=== PATIENT | female | born 1940 | race Caucasian/White ===

== ENCOUNTER 2018-03-20 08:34 | Inpatient (IN) | payer MEDICARE, MEDICAID ==
[~2018-03-20] VITALS: Ht 165.1 cm; Wt 50.3 kg
[2018-03-20 09:07] LABS: BASOPHILS # (AUTO) 0.1 /CMM (0.0-0.2); BASOPHILS % (AUTO) 0.7 % (0.0-2.0); EOSINOPHILS % (AUTO) 0.5 % (0.0-6.0); HEMATOCRIT 32 % (33-45); HEMOGLOBIN 10.3 g/dL (11.5-14.8); LYMPHOCYTES # (AUTO) 1.2 /CMM (0.8-4.8); LYMPHOCYTES % (AUTO) 11.7 % (20.0-44.0); MEAN CORPUSCULAR HGB CONC 32 g/dl (31.0-36.0); MEAN CORPUSCULAR VOLUME 79 fL (82-100); MONOCYTES # (AUTO) 0.4 /CMM (0.1-1.30); NEUTROPHILS # (AUTO) 8.7 /CMM (1.8-8.9); NEUTROPHILS % (AUTO) 83.1 % (43.0-81.0); PLATELET COUNT (AUTO) 478 /CMM (150-450); RDW COEFFICIENT OF VARIATION 18.4 (11.5-15.0); RED BLOOD CELL COUNT(AUTO) 4.07 MIL/uL (4.0-5.2); WHITE BLOOD COUNT (AUTO) 10.5 K/uL (4.3-11.0)
[2018-03-20] MEDS ORDERED: SUVO10TA PO ×2 (09:19→09:36)
[2018-03-20] MEDS ORDERED: METO50TA16 PO ×2 (09:19→09:36)
[2018-03-20] MEDS ORDERED: VORT10TA PO ×2 (09:19→09:36)
[2018-03-20] MEDS ORDERED: CLOP75TA15 PO ×2 (09:19→09:36)
[2018-03-20] MEDS ORDERED: LINA145C PO ×2 (09:19→09:36)
[2018-03-20 09:26] LABS: INR 1.02 (0.87-1.13)
[2018-03-20 09:28] LABS: CALCIUM, SERUM 8.4 mg/dL (8.5-10.1); CARBON DIOXIDE 25 mmol/L (21-32); CHLORIDE 101 mmol/L (98-107); CREATININE 0.9 mg/dL (0.6-1.3); GLUCOSE 96 mg/dL (74-106); POTASSIUM 3.1 mmol/L (3.5-5.1); SODIUM SERUM 139 mmol/L (136-145); UREA NITROGEN, BLOOD 20 mg/dL (7-18)
[2018-03-20] MEDS ORDERED: LATA2.5D7 EACHEYE (09:32)
[2018-03-20 09:34] LABS: ACETAMINOPHEN 0 ug/ml (10-30); ALANINE AMINOTRANSFERASE 9 U/L (12-78); ALBUMIN 2.1 g/dL (3.4-5.0); ALCOHOL, BLOOD < 3 mg/dL (0-0); ALKALINE PHOSPHATASE 77 U/L (46-116); ASPARTATE AMINOTRANSFERASE 16 U/L (15-37); BILIRUBIN,DIRECT 0.1 mg/dL (0.0-0.2); BILIRUBIN,TOTAL 0.4 mg/dL (0.2-1.0); SALICYLATE 1.5 mg/dL (2.8-20.0); TOTAL PROTEIN, SERUM 6.8 g/dL (6.4-8.2)
[2018-03-20 09:36] LABS: TROPONIN I < 0.017 ng/mL (0.00-0.056)
[2018-03-20] MEDS ORDERED: HALOPERIDOL LACTATE INJ 5 MG/ML VIAL IV ONE (10:00)
[2018-03-20] MEDS ORDERED: METOPROLOL TARTRATE 25 MG TABLET PO ONE (10:00)
[2018-03-20] MEDS ORDERED: METOPROLOL TARTRATE 25 MG TABLET ONE (10:02)
[2018-03-20] MEDS ORDERED: HALOPERIDOL LACTATE INJ 5 MG/ML VIAL ONE (10:15)
[2018-03-20] MEDS ORDERED: POTASSIUM CHLORIDE 20 MEQ POWDER PACKET ONE (10:25)
[2018-03-20] MEDS ORDERED: PIPERACILLIN /TAZOBACTAM 3.375 G in IV D5W 50 ML IV ONE (10:30)
[2018-03-20] MEDS ORDERED: LEVOFLOXACIN 750 MG /D5W 150ML 150 ML IV ONE (10:30)
[2018-03-20] MEDS ORDERED: POTASSIUM CHLORIDE 20 MEQ TAB.PRT.SR PO ONE (10:30)
[2018-03-20] MEDS ORDERED: CEFTRIAXONE 1GM BAG (ER ONLY) 1 GM/50 ML PIGGYBACK IV ONE (10:30)
[2018-03-20] MEDS ORDERED: AZITHROMYCIN 250 MG TABLET PO ONE (10:30)
[2018-03-20] MEDS ORDERED: IV NS 0.9% 1,000 ML IV PRN (11:32)
[2018-03-20] MEDS ORDERED: ONDANSETRON HCL/PF 4 MG/2 ML VIAL IVP PRN (12:00)
[2018-03-20] MEDS ORDERED: MAG HYDROX/AL HYDROX/SIMETH 30 ML UDC PO PRN (12:00)
[2018-03-20] MEDS ORDERED: Z GUARD REMEDY 2 OZ OINT TP PRN (12:00)
[2018-03-20] MEDS ORDERED: HYDROCODONE/APAP 5/325MG 1 EACH TABLET PO PRN (12:00)
[2018-03-20] MEDS ORDERED: ACETAMINOPHEN 325 MG TABLET PO PRN (12:00)
[2018-03-20] MEDS ORDERED: MAGNESIUM HYDROXIDE 30 ML UDC PO PRN (12:00)
[2018-03-20] MEDS ORDERED: DILTIAZEM HCL 50 MG IV IV ONE (12:00)
[2018-03-20] MEDS ORDERED: FEE PK DOSING 1 MIN EA MC ONE (12:34)
[2018-03-20 12:51] LABS: APPEARANCE,URINE SL CLOUDY (CLEAR); BILIRUBIN,URINE 1+ (NEGATIVE); BLOOD, URINE TRACE Ery/uL (NEGATIVE); COLOR,URINE YELLOW (YELLOW); KETONES,URINE 2+ (NEGATIVE); LEUKOCYTE ESTERASE ,URINE NEGATIVE (NEGATIVE); NITRITE, URINE NEGATIVE (NEGATIVE); PROTEIN,URINE TRACE mg/dl (NEGATIVE); UGLUCOSE NEGATIVE (NEGATIVE)
[2018-03-20 12:59] LABS: BACTERIA,URINE Few /HPF (None Seen); SQUAMOUS EPITHELIAL CELL,UR Few /HPF (None Seen); WBC,URINE NONE SEEN /HPF (0-3)
[2018-03-20 13:11] LABS: TROPONIN I < 0.017 ng/mL (0.00-0.056)
[2018-03-20 13:50] VITALS: BP 157/63
[2018-03-20] MEDS: DIGOXIN INJ 0.5 MG/2 ML AMPUL IV SCH ×2 (13:58→18:24)
[2018-03-20] MEDS: ENOXAPARIN SODIUM 40 MG/0.4 ML DISP.SYRIN SQ SCH (14:07)
[2018-03-20] MEDS: VANCOMYCIN 1 GM in IV D5W 250 ML IV SCH (14:08)
[2018-03-20 16:00] VITALS: BP 154/73
[2018-03-20] MEDS: IV NS 0.9% 1,000 ML IV PRN (17:07)
[2018-03-20 17:38] LABS: MAGNESIUM 1.9 mg/dL (1.8-2.4); PHOSPHORUS 3.2 mg/dL (2.5-4.9)
[2018-03-20] MEDS: METOPROLOL TARTRATE 50 MG TABLET PO SCH (17:39)
[2018-03-20] MEDS: PIPERACILLIN /TAZOBACTAM 3.375 G in IV D5W 50 ML IV SCH ×2 (17:41→23:39)
[2018-03-20 17:51] LABS: THYROID STIMULATING HORMONE 1.156 uIU/mL (0.358-3.74)
[2018-03-20 20:00] VITALS: BP 150/67
[2018-03-20] MEDS: LATANOPROST EYE DROP 0.005% 2.5 ML BOTTLE EACHEYE SCH (21:10)
[2018-03-21] VITALS: BP 139/66
[2018-03-21] MEDS: DIGOXIN INJ 0.5 MG/2 ML AMPUL IV SCH (00:41)
[2018-03-21] MEDS: IV NS 0.9% 1,000 ML IV PRN ×2 (00:49→17:05)
[2018-03-21 04:00] VITALS: BP 132/44
[2018-03-21] MEDS: PIPERACILLIN /TAZOBACTAM 3.375 G in IV D5W 50 ML IV SCH ×2 (05:34→11:42)
[2018-03-21] MEDS: VANCOMYCIN 1 GM in IV D5W 250 ML IV SCH (06:36)
[2018-03-21 06:46] LABS: APPEARANCE,URINE CLEAR (CLEAR); BILIRUBIN,URINE NEGATIVE (NEGATIVE); BLOOD, URINE 2+ Ery/uL (NEGATIVE); COLOR,URINE YELLOW (YELLOW); KETONES,URINE TRACE (NEGATIVE); LEUKOCYTE ESTERASE ,URINE NEGATIVE (NEGATIVE); NITRITE, URINE NEGATIVE (NEGATIVE); PH,URINE 6.5 (5.0-8.0); PROTEIN,URINE NEGATIVE (NEGATIVE); UGLUCOSE NEGATIVE (NEGATIVE); UROBILINOGEN,URINE 0.2 EU/dL (0.2)
[2018-03-21 07:35] LABS: DIGOXIN 2.06 ng/mL (0.90-2.00)
[2018-03-21 07:40] LABS: EOSINOPHILS % (AUTO) 0.5 % (0.0-6.0); HEMATOCRIT 31 % (33-45); HEMOGLOBIN 9.8 g/dL (11.5-14.8); LYMPHOCYTES # (AUTO) 1.2 /CMM (0.8-4.8); LYMPHOCYTES % (AUTO) 11.1 % (20.0-44.0); MEAN CORPUSCULAR HGB CONC 32 g/dl (31.0-36.0); MEAN CORPUSCULAR VOLUME 79 fL (82-100); MONOCYTES # (AUTO) 0.2 /CMM (0.1-1.30); MONOCYTES % (AUTO) 1.8 % (2.0-12.0); NEUTROPHILS # (AUTO) 9.1 /CMM (1.8-8.9); NEUTROPHILS % (AUTO) 86.6 % (43.0-81.0); PLATELET COUNT (AUTO) 497 /CMM (150-450); RDW COEFFICIENT OF VARIATION 19.2 (11.5-15.0); RED BLOOD CELL COUNT(AUTO) 3.91 MIL/uL (4.0-5.2); TROPONIN I < 0.017 ng/mL (0.00-0.056); WHITE BLOOD COUNT (AUTO) 10.5 K/uL (4.3-11.0)
[2018-03-21 07:43] LABS: ALANINE AMINOTRANSFERASE 7 U/L (12-78); ALBUMIN 1.9 g/dL (3.4-5.0); ALKALINE PHOSPHATASE 71 U/L (46-116); ASPARTATE AMINOTRANSFERASE 16 U/L (15-37); BILIRUBIN,TOTAL 0.3 mg/dL (0.2-1.0); CARBON DIOXIDE 28 mmol/L (21-32); CHLORIDE 105 mmol/L (98-107); CREATININE 0.8 mg/dL (0.6-1.3); GLUCOSE 85 mg/dL (74-106); MAGNESIUM 1.8 mg/dL (1.8-2.4); PHOSPHORUS 3.1 mg/dL (2.5-4.9); POTASSIUM 3.4 mmol/L (3.5-5.1); SODIUM SERUM 141 mmol/L (136-145); TOTAL PROTEIN, SERUM 6.3 g/dL (6.4-8.2); UREA NITROGEN, BLOOD 15 mg/dL (7-18)
[2018-03-21 07:47] LABS: CHOLESTEROL 194 mg/dL (<200); HDL CHOLESTEROL 26 mg/dL (40-60); LDL 152 mg/dL (0-99); TRIGLYCERIDES 90 mg/dL (30-150)
[2018-03-21 08:00] VITALS: BP 114/45
[2018-03-21 08:14] LABS: BACTERIA,URINE None seen /HPF (None Seen); SQUAMOUS EPITHELIAL CELL,UR Few /HPF (None Seen); WBC,URINE 0-2 /HPF (0-3)
[2018-03-21] MEDS: CLOPIDOGREL BISULFATE 75 MG TABLET PO SCH (08:48)
[2018-03-21] MEDS: METOPROLOL TARTRATE 50 MG TABLET PO SCH ×2 (08:48→16:38)
[2018-03-21] MEDS: ENOXAPARIN SODIUM 40 MG/0.4 ML DISP.SYRIN SQ SCH (08:50)
[2018-03-21] MEDS ORDERED: Linaclotide (Linzess) 145 MCG) PO SCH (09:00)
[2018-03-21 09:01] LABS: BAND % (MANUAL) 2 % (0.0-5.0); LYMPHOCYTES % (MANUAL) 14 % (16-48); MONOCYTES % (MANUAL) 2 % (0-11.0); NEUTROPHILS % (MANUAL) 82 (42-76)
[2018-03-21] MEDS: POTASSIUM CHLORIDE 20 MEQ TAB.PRT.SR PO SCH ×2 (10:08→11:26)
[2018-03-21 16:00] VITALS: BP 102/42
[2018-03-21] MEDS: LACTOBACILLUS RHAMNOSUS GG 1 EACH CAP.SPRINK PO SCH (16:40)
[2018-03-21 20:00] VITALS: BP 130/64
[2018-03-21] MEDS: LATANOPROST EYE DROP 0.005% 2.5 ML BOTTLE EACHEYE SCH (22:00)
[2018-03-22] MEDS: IV NS 0.9% 1,000 ML IV PRN (02:44)
[2018-03-22 04:00] VITALS: BP 128/53
[2018-03-22 07:10] LABS: BASOPHILS % (AUTO) 0.3 % (0.0-2.0); EOSINOPHILS % (AUTO) 0.3 % (0.0-6.0); HEMATOCRIT 32 % (33-45); HEMOGLOBIN 10.2 g/dL (11.5-14.8); LYMPHOCYTES # (AUTO) 1.9 /CMM (0.8-4.8); LYMPHOCYTES % (AUTO) 14.4 % (20.0-44.0); MEAN CORPUSCULAR HGB CONC 32 g/dl (31.0-36.0); MEAN CORPUSCULAR VOLUME 80 fL (82-100); MONOCYTES # (AUTO) 0.6 /CMM (0.1-1.30); NEUTROPHILS # (AUTO) 10.3 /CMM (1.8-8.9); PLATELET COUNT (AUTO) 505 /CMM (150-450); RDW COEFFICIENT OF VARIATION 19.1 (11.5-15.0); RED BLOOD CELL COUNT(AUTO) 4.06 MIL/uL (4.0-5.2); WHITE BLOOD COUNT (AUTO) 12.9 K/uL (4.3-11.0)
[2018-03-22 07:22] LABS: CALCIUM, SERUM 8.6 mg/dL (8.5-10.1); CARBON DIOXIDE 25 mmol/L (21-32); CHLORIDE 106 mmol/L (98-107); CREATININE 0.8 mg/dL (0.6-1.3); GLUCOSE 133 mg/dL (74-106); SODIUM SERUM 140 mmol/L (136-145); UREA NITROGEN, BLOOD 10 mg/dL (7-18)
[2018-03-22] MEDS: LACTOBACILLUS RHAMNOSUS GG 1 EACH CAP.SPRINK PO SCH ×2 (08:02→16:25)
[2018-03-22] MEDS: CLOPIDOGREL BISULFATE 75 MG TABLET PO SCH (08:02)
[2018-03-22] MEDS: METOPROLOL TARTRATE 50 MG TABLET PO SCH ×2 (08:03→16:26)
[2018-03-22] MEDS: ENOXAPARIN SODIUM 40 MG/0.4 ML DISP.SYRIN SQ SCH (08:04)
[2018-03-22] MEDS ORDERED: LEVOFLOXACIN 750 MG /D5W 150ML 750 MG in PREMIX 1 EA IV SCH (10:00)
[2018-03-22 12:00] VITALS: BP 132/76
[2018-03-22] MEDS: POTASSIUM CHLORIDE 20 MEQ TAB.PRT.SR PO SCH ×3 (12:03→13:14)
[2018-03-22 16:00] VITALS: BP 147/68
[2018-03-22 20:00] VITALS: BP 151/76
[2018-03-22] MEDS: LATANOPROST EYE DROP 0.005% 2.5 ML BOTTLE EACHEYE SCH (21:17)
[2018-03-23 04:00] VITALS: BP_SYST 14; BP_SYST 142; BP_DIAS 64
[2018-03-23 07:28] LABS: CARBON DIOXIDE 26 mmol/L (21-32); CHLORIDE 109 mmol/L (98-107); CREATININE 0.6 mg/dL (0.6-1.3); GLUCOSE 87 mg/dL (74-106); POTASSIUM 3.5 mmol/L (3.5-5.1); SODIUM SERUM 143 mmol/L (136-145); UREA NITROGEN, BLOOD 9 mg/dL (7-18)
[2018-03-23 08:00] VITALS: BP 145/69
[2018-03-23] MEDS: METOPROLOL TARTRATE 50 MG TABLET PO SCH ×2 (08:39→16:47)
[2018-03-23] MEDS: LACTOBACILLUS RHAMNOSUS GG 1 EACH CAP.SPRINK PO SCH ×2 (08:39→16:48)
[2018-03-23] MEDS: CLOPIDOGREL BISULFATE 75 MG TABLET PO SCH (08:39)
[2018-03-23] MEDS: ENOXAPARIN SODIUM 40 MG/0.4 ML DISP.SYRIN SQ SCH (08:40)
[2018-03-23 16:00] VITALS: BP 154/74
[2018-03-23 20:00] VITALS: BP 124/72
[2018-03-23] MEDS: LATANOPROST EYE DROP 0.005% 2.5 ML BOTTLE EACHEYE SCH (21:46)
[2018-03-24 06:49] LABS: BASOPHILS % (AUTO) 0.3 % (0.0-2.0); EOSINOPHILS % (AUTO) 0.8 % (0.0-6.0); HEMATOCRIT 29 % (33-45); HEMOGLOBIN 9.3 g/dL (11.5-14.8); LYMPHOCYTES # (AUTO) 1.6 /CMM (0.8-4.8); LYMPHOCYTES % (AUTO) 12.1 % (20.0-44.0); MEAN CORPUSCULAR HGB CONC 32 g/dl (31.0-36.0); MEAN CORPUSCULAR VOLUME 79 fL (82-100); MONOCYTES # (AUTO) 0.6 /CMM (0.1-1.30); MONOCYTES % (AUTO) 4.4 % (2.0-12.0); NEUTROPHILS # (AUTO) 11.1 /CMM (1.8-8.9); NEUTROPHILS % (AUTO) 82.4 % (43.0-81.0); PLATELET COUNT (AUTO) 456 /CMM (150-450); RDW COEFFICIENT OF VARIATION 19.2 (11.5-15.0); RED BLOOD CELL COUNT(AUTO) 3.68 MIL/uL (4.0-5.2); WHITE BLOOD COUNT (AUTO) 13.5 K/uL (4.3-11.0)
[2018-03-24 07:07] LABS: CALCIUM, SERUM 8.3 mg/dL (8.5-10.1); CARBON DIOXIDE 26 mmol/L (21-32); CHLORIDE 105 mmol/L (98-107); CREATININE 0.6 mg/dL (0.6-1.3); GLUCOSE 74 mg/dL (74-106); POTASSIUM 3.5 mmol/L (3.5-5.1); SODIUM SERUM 140 mmol/L (136-145); UREA NITROGEN, BLOOD 11 mg/dL (7-18)
[2018-03-24 08:00] VITALS: BP 147/76
[2018-03-24 08:08] LABS: IMMUNOGLOBULIN A, SERUM 542 mg/dL (64-422); IMMUNOGLOBULIN G, SERUM 1074 mg/dL (700-1600); IMMUNOGLOBULIN M, SERUM 48 mg/dL (26-217)
[2018-03-24] MEDS: LACTOBACILLUS RHAMNOSUS GG 1 EACH CAP.SPRINK PO SCH ×2 (08:38→17:21)
[2018-03-24] MEDS: CLOPIDOGREL BISULFATE 75 MG TABLET PO SCH (08:39)
[2018-03-24] MEDS: METOPROLOL TARTRATE 50 MG TABLET PO SCH ×2 (08:39→17:21)
[2018-03-24] MEDS: ENOXAPARIN SODIUM 40 MG/0.4 ML DISP.SYRIN SQ SCH (08:41)
[2018-03-24 10:18] LABS: *SPE A/G RATIO 0.8 (0.7-1.7); *SPE ALBUMIN 2.3 g/dL (2.9-4.4); *SPE ALPHA-1-GLOBULIN 0.3 g/dL (0.0-0.4); *SPE ALPHA-2-GLOBULIN 0.7 g/dL (0.4-1.0); *SPE M-SPIKE Not Observed g/dL (Not Observed)
[2018-03-24 16:00] VITALS: BP 171/75
[2018-03-24 20:00] VITALS: BP 154/92
[2018-03-24] MEDS: LATANOPROST EYE DROP 0.005% 2.5 ML BOTTLE EACHEYE SCH (22:13)
[2018-03-25 05:00] VITALS: BP 150/65
[2018-03-25 06:53] LABS: CALCIUM, SERUM 8.1 mg/dL (8.5-10.1); CARBON DIOXIDE 26 mmol/L (21-32); CHLORIDE 101 mmol/L (98-107); CREATININE 0.7 mg/dL (0.6-1.3); GLUCOSE 72 mg/dL (74-106); POTASSIUM 3.3 mmol/L (3.5-5.1); SODIUM SERUM 139 mmol/L (136-145); UREA NITROGEN, BLOOD 10 mg/dL (7-18)
[2018-03-25 08:00] VITALS: BP 144/85
[2018-03-25] MEDS: LACTOBACILLUS RHAMNOSUS GG 1 EACH CAP.SPRINK PO SCH ×2 (08:17→16:12)
[2018-03-25] MEDS: METOPROLOL TARTRATE 50 MG TABLET PO SCH ×2 (08:18→16:14)
[2018-03-25] MEDS: CLOPIDOGREL BISULFATE 75 MG TABLET PO SCH (08:18)
[2018-03-25] MEDS: ENOXAPARIN SODIUM 40 MG/0.4 ML DISP.SYRIN SQ SCH (08:19)
[2018-03-25] MEDS ORDERED: POTASSIUM CHLORIDE 20 MEQ TAB.PRT.SR PO SCH (11:00)
[2018-03-25 12:00] VITALS: BP 127/54
[2018-03-25] MEDS: ENSURE ENLIVE 237 ML LIQUID (VANILLA) PO SCH ×2 (13:46→17:52)
[2018-03-25 16:00] VITALS: BP 98/56
[2018-03-25] MEDS ORDERED: QUETIAPINE FUMARATE 25 MG TABLET PO PRN (19:00)
[2018-03-25 20:00] VITALS: BP 132/62
[2018-03-25] MEDS: MIRTAZAPINE 15 MG TABLET PO SCH (21:36)
[2018-03-25] MEDS: LATANOPROST EYE DROP 0.005% 2.5 ML BOTTLE EACHEYE SCH (21:36)
[2018-03-26 04:00] VITALS: BP 130/62
[2018-03-26 07:29] LABS: CALCIUM, SERUM 8.1 mg/dL (8.5-10.1); CARBON DIOXIDE 26 mmol/L (21-32); CHLORIDE 102 mmol/L (98-107); CREATININE 0.7 mg/dL (0.6-1.3); GLUCOSE 87 mg/dL (74-106); POTASSIUM 3.1 mmol/L (3.5-5.1); SODIUM SERUM 138 mmol/L (136-145); UREA NITROGEN, BLOOD 16 mg/dL (7-18)
[2018-03-26 08:00] VITALS: BP 140/63
[2018-03-26] MEDS: ENSURE ENLIVE 237 ML LIQUID (VANILLA) PO SCH ×3 (08:00→17:00)
[2018-03-26] MEDS: ENOXAPARIN SODIUM 40 MG/0.4 ML DISP.SYRIN SQ SCH (08:57)
[2018-03-26] MEDS: LACTOBACILLUS RHAMNOSUS GG 1 EACH CAP.SPRINK PO SCH ×2 (08:57→16:57)
[2018-03-26] MEDS: CLOPIDOGREL BISULFATE 75 MG TABLET PO SCH (08:57)
[2018-03-26] MEDS: METOPROLOL TARTRATE 50 MG TABLET PO SCH ×2 (08:57→16:41)
[2018-03-26 12:00] VITALS: BP 140/63
[2018-03-26] MEDS: POTASSIUM CHLORIDE 20 MEQ TAB.PRT.SR PO SCH ×2 (12:00→12:30)
[2018-03-26 16:00] VITALS: BP 117/52
[2018-03-26] MEDS ORDERED: POTASSIUM CHLORIDE 20 MEQ TAB.PRT.SR PO SCH (16:00)
[2018-03-26 20:00] VITALS: BP 126/64
[2018-03-26] MEDS: MIRTAZAPINE 15 MG TABLET PO SCH (21:10)
[2018-03-26] MEDS: LATANOPROST EYE DROP 0.005% 2.5 ML BOTTLE EACHEYE SCH (21:10)
[2018-03-27 04:00] VITALS: BP 121/68
[2018-03-27 06:31] LABS: CALCIUM, SERUM 8.4 mg/dL (8.5-10.1); CARBON DIOXIDE 29 mmol/L (21-32); CHLORIDE 104 mmol/L (98-107); CREATININE 0.7 mg/dL (0.6-1.3); GLUCOSE 99 mg/dL (74-106); POTASSIUM 3.1 mmol/L (3.5-5.1); SODIUM SERUM 141 mmol/L (136-145); UREA NITROGEN, BLOOD 17 mg/dL (7-18)
[2018-03-27 08:00] VITALS: BP 121/57
[2018-03-27] MEDS: ENSURE ENLIVE 237 ML LIQUID (VANILLA) PO SCH ×3 (08:00→17:00)
[2018-03-27] MEDS: ENSURE ENLIVE CHOC 237 ML CAN PO SCH ×3 (08:00→17:00)
[2018-03-27] MEDS: LACTOBACILLUS RHAMNOSUS GG 1 EACH CAP.SPRINK PO SCH ×3 (09:00→18:02)
[2018-03-27] MEDS: CLOPIDOGREL BISULFATE 75 MG TABLET PO SCH (09:00)
[2018-03-27] MEDS: ENOXAPARIN SODIUM 40 MG/0.4 ML DISP.SYRIN SQ SCH (09:00)
[2018-03-27] MEDS: METOPROLOL TARTRATE 50 MG TABLET PO SCH ×3 (09:00→18:02)
[2018-03-27] MEDS ORDERED: POTASSIUM CHLORIDE 20 MEQ TAB.PRT.SR PO SCH (12:00)
[2018-03-27 16:00] VITALS: BP 122/61
[2018-03-27 20:00] VITALS: BP 141/66
[2018-03-27] MEDS: MIRTAZAPINE 15 MG TABLET PO SCH (21:54)
[2018-03-27] MEDS: LATANOPROST EYE DROP 0.005% 2.5 ML BOTTLE EACHEYE SCH (21:54)
[2018-03-28 07:41] LABS: CALCIUM, SERUM 8.4 mg/dL (8.5-10.1); CARBON DIOXIDE 27 mmol/L (21-32); CHLORIDE 105 mmol/L (98-107); CREATININE 0.6 mg/dL (0.6-1.3); GLUCOSE 87 mg/dL (74-106); POTASSIUM 3.6 mmol/L (3.5-5.1); SODIUM SERUM 142 mmol/L (136-145); UREA NITROGEN, BLOOD 18 mg/dL (7-18)
[2018-03-28 08:00] VITALS: BP 143/65
[2018-03-28] MEDS: ENSURE ENLIVE CHOC 237 ML CAN PO SCH ×3 (08:00→17:00)
[2018-03-28] MEDS: ENSURE ENLIVE 237 ML LIQUID (VANILLA) PO SCH ×3 (08:00→17:00)
[2018-03-28] MEDS: LACTOBACILLUS RHAMNOSUS GG 1 EACH CAP.SPRINK PO SCH ×2 (09:00→18:13)
[2018-03-28] MEDS: CLOPIDOGREL BISULFATE 75 MG TABLET PO SCH ×2 (09:00→13:02)
[2018-03-28] MEDS: ENOXAPARIN SODIUM 40 MG/0.4 ML DISP.SYRIN SQ SCH (09:00)
[2018-03-28] MEDS: METOPROLOL TARTRATE 50 MG TABLET PO SCH ×3 (09:00→18:14)
[2018-03-28 16:00] VITALS: BP 140/65
[2018-03-28 20:00] VITALS: BP 111/87
[2018-03-28] MEDS: LATANOPROST EYE DROP 0.005% 2.5 ML BOTTLE EACHEYE SCH (21:59)
[2018-03-28] MEDS: MIRTAZAPINE 15 MG TABLET PO SCH (22:00)
[2018-03-29 04:00] VITALS: BP 143/58
[2018-03-29 08:00] VITALS: BP 136/63
[2018-03-29] MEDS: ENSURE ENLIVE CHOC 237 ML CAN PO SCH ×3 (08:00→16:58)
[2018-03-29] MEDS: ENSURE ENLIVE 237 ML LIQUID (VANILLA) PO SCH ×3 (08:00→16:57)
[2018-03-29] MEDS: ENOXAPARIN SODIUM 40 MG/0.4 ML DISP.SYRIN SQ SCH (09:00)
[2018-03-29] MEDS: METOPROLOL TARTRATE 50 MG TABLET PO SCH ×2 (09:18→16:50)
[2018-03-29] MEDS: CLOPIDOGREL BISULFATE 75 MG TABLET PO SCH (09:18)
[2018-03-29] MEDS: LACTOBACILLUS RHAMNOSUS GG 1 EACH CAP.SPRINK PO SCH ×2 (09:18→16:50)
[2018-03-29 16:00] VITALS: BP 126/67
[2018-03-29 16:50] VITALS: BP 126/67
[2018-03-29] MEDS ORDERED: OLANZAPINE 2.5 MG TABLET PO SCH (22:00)
== END 2018-03-29 19:00 | disposition home health service (06) | DRG 180 ==
LOC: ER 08:38 → TELE 11:45 → TELE1 12:05 → MEDSG1 03-21 10:55
PROVIDERS: ADMIT Nurse Practitioner Acute Care; ATTEND Nurse Practitioner Acute Care
DX: C34.90 Malignant neoplasm of unspecified part of unspecified bronchus or lung (principal); E43 Unspecified severe protein-calorie malnutrition; N17.0 Acute kidney failure with tubular necrosis; G93.41 Metabolic encephalopathy; R45.851 Suicidal ideations; E87.2 Acidosis; I48.2 Chronic atrial fibrillation; E87.6 Hypokalemia; F32.9 Major depressive disorder, single episode, unspecified; E86.0 Dehydration; D47.3 Essential (hemorrhagic) thrombocythemia; E04.2 Nontoxic multinodular goiter; F03.90 Unspecified dementia, unspecified severity, without behavioral disturbance, psychotic disturbance, mood disturbance, and anxiety; Z96.641 Presence of right artificial hip joint; Z91.19 Patient's noncompliance with other medical treatment and regimen; K59.09 Other constipation; I10 Essential (primary) hypertension; D63.8 Anemia in other chronic diseases classified elsewhere; E61.1 Iron deficiency; D72.829 Elevated white blood cell count, unspecified
CPT/HCPCS: 36415; 71045-TC; 71250-TC; 80048-TC; 80053-TC; 80061-TC; 80076-TC; 80162-TC; 80202-TC; 80305; 81000-TC; 82728-TC; 82784; 83540-TC; 83605-TC; 83735-TC; 84100-TC; 84155; 84165; 84439-TC; 84443-TC; 84484-TC; 85025-TC; 85730-TC; 86334; 87040-TC; 87081-TC; 87086-TC; 93307-TC; 97110-TC; 97116-TC; 97530-TC; A4216; A4606; G0378; G0480; J1160; J1630; J1650; J1956; J2543; J3370; J3490; J7030; J7060; Z7610